=== PATIENT | female | born 1950 | race Caucasian/White ===

== ENCOUNTER → 2016-05-13 | Outpatient (CLI) | payer OTHER, BC ==
--- NOTE | 2016-05-15 08:33 | DX ---
Bone Densitometry Indication: Osteopenia. Technique: DEXA scan was performed on [employer] W Bone Densitometer. Comparison Study: May 07, 2014. Results: Lumbar Spine (L1-L4) BMD: 1.162 T-score: 1.0 Prior BMD: 1.140 Percent change: 2.0% Total Hip (Right) BMD: 0.790 T-score: -1.2 Prior BMD: 0.788 Percent change: 0.3% Femoral Neck (Right) BMD: 0.620 T-score: -2.1 Total Hip (Left) BMD: 0.769 T-score: -1.4 Prior BMD: 0.745 Percent change: 3.3% Femoral Neck (Left) BMD: 0.610 T-score: -2.2 Conclusion: Osteopenia. In comparison to the previous study from May 2014, there has been an increase in the patient's me asured BMD of the lumbar spine and the left hip, however, these changes are not significant. Additional Comments: 1. By FRAX calculation, the estimated 10-year risk of any major osteoporotic fracture is 25%. The es timated 10-year risk of hip fracture is 2.7%. 2. Consider repeating this study in 2 years or as clinically indicated. NOTE: The risk of osteoporotic fracture increases approximately two-fold for each 1.0 SD decrease in T-score. The T-score represents the standard deviations from a young normal, same sex, reference po pulation. Low bone density is not the only risk factor for fracture. Clinical factors to consider include fall risk, previous osteoporotic fracture, family history of fractures, smoking, and low body weight. Patients who have an unexpectedly low BMD may need to be evaluated for secondary causes of low bone m ineral density. In comparing the present study to a prior study, lack of a significant increase or decrease in BMD ma y signify efficacy of the patient's present treatment. Bone mineral density measurements performed with densitometers produced by different manufacturers ar e not comparable. For the most reproducible BMD measurement, subsequent exams should be performed on the same densitometer.
== END ==
LOC: BMCIMAGING 10:06
PROVIDERS: ATTEND Internal Medicine Endocrinology, Diabetes & Metabolism
DX: Z13.820 Encounter for screening for osteoporosis (principal); M85.80 Other specified disorders of bone density and structure, unspecified site

== ENCOUNTER → 2016-07-31 | Outpatient (CLI) | payer OTHER, BC | LOC: FIMAGING 13:31 | PROVIDERS: ATTEND Orthopaedic Surgery Orthopaedic Surgery of the Spine | DX: M51.16 Intervertebral disc disorders with radiculopathy, lumbar region (principal); Q76.49 Other congenital malformations of spine, not associated with scoliosis ==

== ENCOUNTER → 2016-08-12 | Outpatient (CLI) | payer OTHER, BC | LOC: BMCIMAGING 11:18 | PROVIDERS: ATTEND Internal Medicine Rheumatology | DX: Z03.89 Encounter for observation for other suspected diseases and conditions ruled out (principal) ==

== ENCOUNTER → 2017-01-13 | Outpatient (CLI) | payer OTHER, BC | LOC: BMCIMAGING 11:35 | PROVIDERS: ATTEND Internal Medicine Rheumatology | DX: M19.041 Primary osteoarthritis, right hand (principal); M19.042 Primary osteoarthritis, left hand ==

== ENCOUNTER → 2018-05-11 | Outpatient (CLI) | payer OTHER, BC | LOC: BMCIMAGING 14:18 | PROVIDERS: ATTEND Internal Medicine Endocrinology, Diabetes & Metabolism | DX: Z13.820 Encounter for screening for osteoporosis (principal); M85.89 Other specified disorders of bone density and structure, multiple sites ==